=== PATIENT | female | born 1995 | race Caucasian/White ===

== ENCOUNTER 2017-05-29 19:59 | Emergency (ER) | payer OTHER, BC ==
[~2017-05-29] VITALS: Ht 162.6 cm; Wt 118.2 kg
[2017-05-29 20:03] VITALS: TEMP 98.3
[2017-05-29] MEDS ORDERED: PROZAC 10MG10 MG PO (20:09)
[2017-05-29] MEDS ORDERED: BIRTH CONTROL (20:09)
[2017-05-29] MEDS ORDERED: NORCO 325 MG-51 TAB PO (21:34)
[2017-05-29] MEDS ORDERED: CRUTCHES MC (21:41)
[2017-05-29 22:03] VITALS: BP 135/78; PULSE 100
== END 2017-05-29 22:05 | disposition home or self-care (01) ==
LOC: COL.ER 19:59
DX: S93.402A Sprain of unspecified ligament of left ankle, initial encounter (principal); S82.301A Unspecified fracture of lower end of right tibia, initial encounter for closed fracture; W10.8XXA Fall (on) (from) other stairs and steps, initial encounter; Y92.009 Unspecified place in unspecified non-institutional (private) residence as the place of occurrence of the external cause
CPT/HCPCS: Q4045